=== PATIENT | male | born 1975 | race Caucasian/White ===

== ENCOUNTER 2017-12-21 22:01 | Inpatient (IN) | payer OTHER ==
[2017-12-21 22:01] VITALS: BMI 44.3
--- NOTE | 2017-12-21 23:05 | C.PDOC ---
History Of Present Illness 42 year old with medical history of chronic renal disease, who presents to the emergency department with a complaint of right-sided lower abdominal pain associated with nausea and diarrhea ongoing for 1 day but worsen since 1700- 1800. Patient described pain as sharp and stabbing; 5/10 pain scale. Denied any further medical complaints. PMD: none provided Time Seen by Provider: 12/21/17 23:04 Chief Complaint (Nursing): Abdominal Pain History Per: Patient History/Exam Limitations: no limitations Onset/Duration Of Symptoms: Days (x1) Current Symptoms Are (Timing): Still Present Context: Other Severity: Moderate Pain Scale Rating Of: 5 Location Of Pain/Discomfort: RLQ Radiation Of Pain To:: None Quality Of Discomfort: Sharp Associated Symptoms: denies: Fever, Chills Exacerbating Factors: None Alleviating Factors: None Last Bowel Movement: Yesterday Recent travel outside of the [place]: No Additional History Per: Patient Past Medical History Reviewed: Historical Data, Nursing Documentation, Vital Signs Vital Signs: Last Vital Signs Temp 98.3 F 12/21/17 22:12 Pulse 77 12/22/17 01:53 Resp 20 12/22/17 01:53 BP 114/61 12/22/17 01:53 Pulse Ox 96 12/22/17 01:53 - Medical History PMH: Kidney Stones, Chronic Kidney Disease Denies: No Chronic Diseases Surgical History: Denies: No Surg Hx Other Surgeries: right knee Family History: States: No Known Family Hx - Social History Hx Tobacco Use: No Hx Alcohol Use: Yes Hx Substance Use: No - Immunization History Hx Tetanus Toxoid Vaccination: No Hx Influenza Vaccination: Yes Hx Pneumococcal Vaccination: No Review Of Systems Constitutional: Negative for: Fever, Chills ENT: Negative for: Throat Pain Cardiovascular: Negative for: Chest Pain Respiratory: Negative for: Shortness of Breath Gastrointestinal: Positive for: Nausea, Abdominal Pain (lower right), Diarrhea Genitourinary: Negative for: Dysuria Musculoskeletal: Negative for: Back Pain Skin: Negative for: Rash Neurological: Negative for: Weakness Psych: Negative for: Anxiety Physical Exam - Physical Exam Appears: Non-toxic Skin: Warm, Dry, No Rash Head: Normacephalic Eye(s): bilateral: Normal Inspection Nose: Normal Oral Mucosa: Dry Throat: Normal Neck: Supple Chest: Symmetrical Cardiovascular: Rhythm Regular Respiratory: No Decreased Breath Sounds, No Rales, No Rhonchi, No Wheezing Gastrointestinal/Abdominal: No Normal Exam, Bowel Sounds (tympanitic auscultation), Tenderness (RLQ), No Guarding, No Rebound, Other (morbidly obese) Back: Normal Inspection Extremity: Normal ROM (upper/lower), No Tenderness, No Pedal Edema Extremity: Bilateral: Atraumatic Pulses: Left Dorsalis Pedis: Normal, Right Dorsalis Pedis: Normal Neurological/Psych: Oriented x3, Normal Speech, Normal Cognition Gait: Steady ED Course And Treatment - Laboratory Results Result Diagrams: 12/21/17 23:33 12/21/17 23:33 O2 Sat by Pulse Oximetry: 97 (RA) Pulse Ox Interpretation: Normal Medical Decision Making Medical Decision Making: Initial Impression: RLQ pain Initial Plan: * CT ABD/pelvis with IV contrast * CMP * Lipase * CBC * PTT * PT * Pepcid 20mg IVP * NS 1,000ml IV per 1,000mls/hr * Zofran inj 4mg IVP * UA Scribe Attestation: Documented by Griselda Nice, acting as a scribe for Josse Salguero MD. Provider Scribe Attestation: All medical record entries made by the Scribe were at my direction and personally dictated by me. I have reviewed the chart and agree that the record accurately reflects my personal performance of the history, physical exam, medical decision making, and the department course for this patient. I have also personally directed, reviewed, and agree with the discharge instructions and disposition. Disposition Discussed With : Arpit Verma Comment: accepted the pt on is service and took over the care at 3:27 AM Doctor Will See Patient In The: ED Counseled Patient/Family Regarding: Studies Performed, Diagnosis - Disposition Disposition: HOSPITALIZED Disposition Time: 23:05 Condition: FAIR Forms: [employer] (Lao) - POA Present On Arrival: Poor Glycemic Control - Clinical Impression Clinical Impression: Abdominal pain Decision To Admit - Pt Status Changed To: Hospital Disposition Of: Inpatient - Admit Certification Admit to Inpatient:: After my assessment, the patient will require hospitalization for at least two midnights. This is because of the severity of symptoms shown, intensity of services needed, and/or the medical risk in this patient being treated as an outpatient. - InPatient: Physician Admission Certification:: After my assessment, the patient will require hospitalization for at least two midnights. This is because of the severity of symptoms shown, intensity of services needed, and/or the medical risk in this patient being treated as an outpatient. - . Bed Request Type: Regular Admitting Physician: Arpit Verma Patient Diagnosis: Abdominal pain
[2017-12-21] MEDS ORDERED: Sodium Chloride 0.9% 1,000 ML IV ONE (23:06)
[2017-12-21 23:36] LABS: BASO # 0.1 K/uL (0.0-0.2); BASO % 0.5 % (0.0-2.0); EOS % 0.2 % (0.0-4.0); HEMOGLOBIN 14.3 g/dL (12.0-18.0); LYMPH # 1.3 K/uL (1.0-4.3); LYMPH % 10.3 % (20.0-40.0); MEAN CELL VOLUME 82.5 fL (80.0-94.0); MEAN CORPUSCULAR HEMOGLOBIN 28.8 pg (27.0-31.0); MEAN CORPUSCULAR HGB CONC 34.9 g/dL (33.0-37.0); MEAN PLATELET VOLUME 7.1 fL (7.2-11.7); MONO # 0.8 K/uL (0.0-0.8); MONO % 6.2 % (0.0-10.0); NEUT # 10.7 K/uL (1.8-7.0); NEUT % 82.8 % (50.0-75.0); RBC 4.96 Mil/uL (4.40-5.90); RED CELL DISTRIBUTION WIDTH 13.8 % (11.5-14.5)
[2017-12-21] MEDS ORDERED: Sodium Chloride 0.9% 1,000 ML ONE (23:38)
[2017-12-21 23:43] LABS: INR 1.2; PROTHROMBIN TIME 13.3 SECONDS (9.7-12.2)
[2017-12-21 23:48] LABS: ALB/GLOB RATIO 1.3 (1.0-2.1); ALBUMIN 4.1 g/dL (3.5-5.0); ALT/SGPT 37 U/L (21-72); AST/SGOT 24 U/L (17-59); BLOOD UREA NITROGEN 17 mg/dL (9-20); CALCIUM 8.8 mg/dl (8.6-10.4); GFR AFRICAN-AMERICAN > 60; GFR NON-AFRICAN AMERICAN > 60; LIPASE 37 U/L (23-300)
[2017-12-22] MEDS ORDERED: Iodixanol 320 MG/ML 100 ML BOTTLE IV ONE (00:21)
[2017-12-22 01:06] LABS: URINE BILIRUBIN NEGATIVE (NEGATIVE); URINE BLOOD NEGATIVE (NEGATIVE); URINE CLARITY Clear (Clear); URINE COLOR Yellow (YELLOW); URINE GLUCOSE (UA) NORMAL (Normal); URINE LEUKOCYTE ESTERASE NEG Leu/uL (Negative); URINE NITRATE NEGATIVE (NEGATIVE); URINE PROTEIN NEGATIVE (NEGATIVE); URINE UROBILINOGEN NORMAL mg/dL (0.2-1.0)
--- NOTE | 2017-12-22 02:51 | CT ---
EXAM: CT Abdomen and Pelvis With Intravenous Contrast CLINICAL HISTORY: 42 years old, male; Pain; Abdominal pain; Patient HX: 08-16-16; Additional info: Abd pain rlq TECHNIQUE: Axial computed tomography images of the abdomen and pelvis with intravenous contrast. All CT scans at this facility use one or more dose reduction techniques, viz.: automated exposure control; ma/kV adjustment per patient size (including targeted exams where dose is matched to indication; i.e. head); or iterative reconstruction technique. 812 images are submitted. Coronal and sagittal reformatted images were created and reviewed. CONTRAST: 100 mL of [id number] administered intravenously. COMPARISON: CT - ABD PELVIS W/O PO OR IV CONT 2016-08-16 09:30 FINDINGS: Lower thorax: Small hiatal hernia. ABDOMEN: Liver: Fatty liver. Gallbladder and bile ducts: Unremarkable. No ductal dilation. Pancreas: Unremarkable. No mass. No ductal dilation. Spleen: Unremarkable. No splenomegaly. Adrenals: Unremarkable. No mass. Kidneys and ureters: Unremarkable. No solid mass. No hydronephrosis. Stomach and bowel: Diverticulosis. No obstruction. No mucosal thickening. Appendix: The appendix demonstrates diffuse distention, consistent with acute appendicitis. The appendix measures 1.3 cm with surrounding inflammation an appendicolith. PELVIS: Bladder: Partially distended bladder. Reproductive: Enlarged prostate gland with calcifications. ABDOMEN and PELVIS: Intraperitoneal space: Unremarkable. No free air. No significant fluid collection. Bones/joints: No acute fracture. No dislocation. Soft tissues: Unremarkable. Vasculature: Unremarkable. No abdominal aortic aneurysm. Lymph nodes: Unremarkable. No enlarged lymph nodes. IMPRESSION: The appendix demonstrates diffuse distention, consistent with acute appendicitis. The appendix measures 1.3 cm with surrounding inflammation an appendicolith.
[2017-12-22] MEDS ORDERED: Piperacillin/Tazobact 3.375 gm 100 ML IVPB STA (02:57)
[2017-12-22] MEDS ORDERED: Morphine 4 MG/ML VIAL ONE (03:24)
--- NOTE | 2017-12-22 04:43 | CP.PCM.HP ---
History of Present Illness - History of Present Illness History of Present Illness: General Surgery H&P for Dr. Verma CC: RLQ abdominal pain, fever/chills 42 M with no significant PMH presents to [facility] for complaint of RLQ abdominal pain, fever/chills. Patient states that symptoms began 1 day ago. He suddenly developed the pain while at home. He has never experienced this before in the past. He admits to associated nausea. He was unable to tolerate anything by mouth. He rates pain as severe. He describes as constant, sharp and stabbing located in RLQ without radiation. Patient reports by is exacerbated by most movements while nothing provides full relief but not moving helps. Patients has no other complaints. PMH: denies Meds: denies Allergy: NKDA PSH: R knee arthroscopy FH: CAD, CVA Social: denies tobacco/illicit drug use, admits social EtOH use Present on Admission - Present on Admission Any Indicators Present on Admission: No History of DVT/PE: No History of Uncontrolled Diabetes: No Urinary Catheter: No Decubitus Ulcer Present: No Review of Systems - Review of Systems All systems: reviewed and no additional remarkable complaints except (as per HPI ) Past Patient History - Infectious Disease Hx of Infectious Diseases: None - Past Social History Smoking Status: Never Smoked - CARDIAC Hx Cardiac Disorders: No - PULMONARY Hx Respiratory Disorders: No - NEUROLOGICAL Hx Neurological Disorder: No - HEENT Hx HEENT Problems: No - RENAL Hx Chronic Kidney Disease: Yes Hx Kidney Stones: Yes - ENDOCRINE/METABOLIC Hx Endocrine Disorders: No - HEMATOLOGICAL/ONCOLOGICAL Hx Blood Disorders: No - INTEGUMENTARY Hx Dermatological Problems: No - MUSCULOSKELETAL/RHEUMATOLOGICAL Hx Musculoskeletal Disorders: No - GASTROINTESTINAL Hx Gastrointestinal Disorders: No - GENITOURINARY/GYNECOLOGICAL Hx Genitourinary Disorders: No - PSYCHIATRIC Hx Substance Use: No - SURGICAL HISTORY Hx Surgeries: Yes Hx Orthopedic Surgery: Yes (RIGHT KNEE) - ANESTHESIA Hx Anesthesia: Yes Meds Allergies/Adverse Reactions: Allergies Allergy/AdvReac Type Severity Reaction Status Date / Time No Known Allergies Allergy Verified 12/21/17 22:17 Physical Exam - Constitutional Appears: Toxic, In Acute Distress - Head Exam Head Exam: ATRAUMATIC, NORMOCEPHALIC - Eye Exam Eye Exam: EOMI, Normal appearance Pupil Exam: PERRL - ENT Exam ENT Exam: Mucous Membranes Dry - Respiratory Exam Respiratory Exam: NORMAL BREATHING PATTERN - Cardiovascular Exam Cardiovascular Exam: REGULAR RHYTHM - GI/Abdominal Exam GI & Abdominal Exam: Guarding, Soft, Tenderness (RLQ). absent: Distended, Firm , Rebound, Rigid - Extremities Exam Extremities exam: Positive for: normal capillary refill, pedal pulses present. Negative for: calf tenderness - Back Exam Back exam: absent: CVA tenderness (L), CVA tenderness (R) - Neurological Exam Neurological exam: Alert, CN II-XII Intact, Oriented x3 - Psychiatric Exam Psychiatric exam: Normal Affect, Normal Mood - Skin Skin Exam: Dry, Intact, Normal Color, Warm Results - Vital Signs Recent Vital Signs: Last Vital Signs Temp 99.0 F 12/22/17 03:54 Pulse 79 12/22/17 03:54 Resp 18 12/22/17 03:54 BP 120/73 12/22/17 03:54 Pulse Ox 95 12/22/17 03:54 - Labs Result Diagrams: 12/21/17 23:33 12/21/17 23:33 Labs: Laboratory Results - last 24 hr 12/21/17 12/21/17 12/21/17 01:00 23:33 23:33 WBC 13.0 H RBC 4.96 Hgb 14.3 Hct 40.9 MCV 82.5 MCH 28.8 MCHC 34.9 RDW 13.8 Plt Count 338 MPV 7.1 L Neut % (Auto) 82.8 H Lymph % (Auto) 10.3 L Kimble % (Auto) 6.2 Eos % (Auto) 0.2 Baso % (Auto) 0.5 Neut # 10.7 H Lymph # 1.3 Kimble # 0.8 Eos # 0.0 Baso # 0.1 PT 13.3 H INR 1.2 APTT 35 H Sodium Potassium Chloride Carbon Dioxide Anion Gap BUN Creatinine Est GFR ( Amer) Est GFR (Non-Af Amer) Random Glucose Calcium Total Bilirubin AST ALT Alkaline Phosphatase Total Protein Albumin Globulin Albumin/Globulin Ratio Lipase Urine Color Yellow Urine Clarity Clear Urine pH 6.0 Ur Specific Julian 1.023 Urine Protein Negative Urine Glucose (UA) Normal Urine Ketones Negative Urine Blood Negative Urine Nitrate Negative Urine Bilirubin Negative Urine Urobilinogen Normal Ur Leukocyte Esterase Neg Urine WBC (Auto) < 1 Urine RBC (Auto) 2 12/21/17 23:33 WBC RBC Hgb Hct MCV MCH MCHC RDW Plt Count MPV Neut % (Auto) Lymph % (Auto) Kimble % (Auto) Eos % (Auto) Baso % (Auto) Neut # Lymph # Kimble # Eos # Baso # PT INR APTT Sodium 133 Potassium 4.3 Chloride 95 L Carbon Dioxide 30 Anion Gap 12 BUN 17 Creatinine 0.8 Est GFR ( Amer) > 60 Est GFR (Non-Af Amer) > 60 Random Glucose 138 H Calcium 8.8 Total Bilirubin 0.8 AST 24 ALT 37 Alkaline Phosphatase 95 Total Protein 7.3 Albumin 4.1 Globulin 3.2 Albumin/Globulin Ratio 1.3 Lipase 37 Urine Color Urine Clarity Urine pH Ur Specific Julian Urine Protein Urine Glucose (UA) Urine Ketones Urine Blood Urine Nitrate Urine Bilirubin Urine Urobilinogen Ur Leukocyte Esterase Urine WBC (Auto) Urine RBC (Auto) Assessment & Plan - Assessment and Plan (Free Text) Plan: 42 M with acute appendicitis -NPO -IV fluids -IV antibiotics -Analgesics/Anti-emetics PRN -Antipyretics -OR today for laparoscopic appendectomy -Discussed with Dr. Bayron Royal PGY1
[2017-12-22] MEDS ORDERED: Sodium Chloride 0.9% 1,000 ML IV ONE ×3 (07:57→16:19)
[2017-12-22] MEDS ORDERED: Sodium Chloride 0.9% 1,000 ML IV SCH (08:00)
--- NOTE | 2017-12-22 08:23 | RAD ---
HISTORY: preop COMPARISON: No prior. FINDINGS: LUNGS: No active pulmonary disease. Apical lordotic view noted PLEURA: No significant pleural effusion identified, no pneumothorax apparent. CARDIOVASCULAR: Normal. OSSEOUS STRUCTURES: No significant abnormalities. VISUALIZED UPPER ABDOMEN: Normal. OTHER FINDINGS: None. IMPRESSION: No active disease.
[2017-12-22] MEDS: Piperacill/Tazo 3.375gm in Dex 3.375 GM/50 ML BAG IVPB SCH ×3 (09:14→21:39)
[2017-12-22] MEDS ORDERED: Bupivacaine-Epi 0.5%-1:200,000 PF Inj IJ ONE (10:29)
[2017-12-22] MEDS ORDERED: Midazolam 2 MG/2 ML VIAL ONE (12:01)
[2017-12-22] MEDS ORDERED: Propofol 10 mg/ml Inj (20 ML) ONE ×2 (12:01→13:30)
[2017-12-22] MEDS ORDERED: Neostigmine Methylsulfate 3mg/3ml Syringe IV ONE ×2 (13:10)
--- NOTE | 2017-12-22 13:45 | PCM.SURG1 ---
Surgeon's Initial Post Op Note - Surgeon's Notes Surgeon: Arpit Verma MD Recreation Counselor: Sukumar Schultz PGY-4; Belén Dias PGY-1 Type of Anesthesia: General Endo Pre-Operative Diagnosis: Acute appendicitis Operative Findings: See op report Post-Operative Diagnosis: Acute appendicitis Operation Performed: Laparoscopic converted to open appendectomy Specimen/Specimens Removed: Appendix Estimated Blood Loss: EBL {In ML}: 30 Blood Products Given: N/A Drains Used: No Drains Post-Op Condition: Good Date of Surgery/Procedure: 12/22/17 Time of Surgery/Procedure: 13:45
[2017-12-22] MEDS ORDERED: HYDROmorphone 0.5 mg/0.5 ml ISec IVP PRN (13:46)
[2017-12-22 18:00] VITALS: RESP 20
[2017-12-22] MEDS: Sodium Chloride 0.9% 1,000 ML IV SCH (18:08)
--- NOTE | 2017-12-22 20:54 | CARD ---
APPROVED REPORT EKG Measurement Heart [id number] <Conclusion> Normal sinus rhythm Normal ECG
--- NOTE | 2017-12-23 00:25 | OP ---
PROCEDURE DATE: 12/22/2017 PREOPERATIVE DIAGNOSIS: Acute appendicitis. POSTOPERATIVE DIAGNOSIS: Acute gangrenous appendicitis. PROCEDURE PERFORMED: Attempted laparoscopic appendectomy, laparotomy and appendectomy. SURGEON: Arpit Verma MD DEBURRING AND TOOLING MACHINE OPERATOR: . FINDINGS: At first, there was a tremendous amount of intestinal distention, preventing adequate visualization of the abdominal cavity in spite of the very high pressure that was already inserted into the patient. The appendix was markedly swollen. It was gangrenous, but there was no gross perforation noted. DESCRIPTION OF PROCEDURE: Under general anesthesia, the patient was prepared and draped in the usual sterile fashion. At first, CO2 was insufflated through a Veress needle inserted into the umbilical area. A 12-mm trocar was attempted to be inserted, but it was not long enough to penetrate the peritoneal cavity. Therefore, the trocar was changed into the longest trocar that we have. When this was finally inserted and the camera was inserted, it was impossible to visualize even the parietal peritoneal wall to be able to put down or put in the other trocars. Attempt at visualizing the appendix and the area surrounding it was impossible because of the tremendous amount of abdominal and intestinal distention. Therefore, at this point, it was decided that we ought to do a laparotomy to be able to do the appendectomy adequately. A right paramedian incision was made going down into the adipose tissue. Fascia was then divided and the muscle along the course of its fibers. all the bleeders still were encountered. The peritoneal cavity was entered and examination demonstrated that the appendix was adherent to the posterior wall, and it was then decided to do the blunt dissection to mobilize the cecum slightly. When the appendix was then visualized, it was grasped with two [place] forceps. Gentle traction was applied. The base of the appendix was then transected between 2 large Mago forceps and the base was ligated with 0 Vicryl tie. The mesoappendix was treated in a similar fashion and also was suture ligated because of some oozing in the mesentery. When this was accomplished, the cecum was at the base of the appendix, in normal position. The abdomen was then closed utilizing a continuous suture of #1 Vicryl to the peritoneum and interrupted #1 Vicryl suture to the fascia. The skin was closed with multiple skin julianne. The other umbilical incisions were closed with suture of 0 Vicryl, the skin with subcuticular suture of 4-0 Monocryl. The estimated blood loss for the procedure was approximately about 30-50 mL. The patient tolerated the procedure quite well and left the operating room in good condition. At the end of the procedure, the area of the operation was then inspected and there was no bleeding noted. Therefore, the abdomen was closed as described previously. Arpit Verma MD
[2017-12-23] MEDS: Sodium Chloride 0.9% 1,000 ML IV SCH ×4 (02:21→21:50)
[2017-12-23] MEDS: Piperacill/Tazo 3.375gm in Dex 3.375 GM/50 ML BAG IVPB SCH ×4 (02:21→21:47)
[2017-12-23] MEDS: Oxycodone/Acetaminophen 5/325 mg Tab PO PRN ×2 (08:14→21:48)
--- NOTE | 2017-12-23 09:30 | CP.PCM.PN ---
Subjective - Date & Time of Evaluation Date of Evaluation: 12/23/17 Time of Evaluation: 09:27 - Subjective Subjective: General Surgery progress Note for Dr. Verma Patient was seen and examined this AM at bedside no acute events overnight. Dressing with sanguinous strike through. Pt denies fevers chills nausea vomiting diarrhea, denies flatus or BM, reports voiding. Objective - Vital Signs/Intake and Output Vital Signs (last 24 hours): Temp Pulse Resp BP Pulse Ox 98.3 F 85 20 145/73 94 L 12/23/17 08:15 12/23/17 08:15 12/23/17 08:15 12/23/17 08:15 12/23/17 08:15 Intake and Output: 12/23/17 12/23/17 06:59 18:59 Intake Total 1440 Output Total 550 Balance 890 - Medications Medications: Current Medications Hydromorphone HCl (Dilaudid) 1 mg IVP Q3H PRN PRN Reason: Pain, severe (8-10) Last Admin: 12/23/17 02:20 Dose: 1 mg Piperacillin Sod/Tazobactam Sod (Zosyn 3.375 Gm Iv Premix) 3.375 gm in 50 mls @ 100 mls/hr IVPB Q6H [facility] Last Admin: 12/23/17 08:15 Dose: 100 mls/hr Sodium Chloride (Sodium Chloride 0.9%) 1,000 mls @ 100 mls/hr IV .Q10H [facility] Last Admin: 12/23/17 02:21 Dose: 100 mls/hr Ondansetron HCl (Zofran Inj) 4 mg IVP Q4H PRN PRN Reason: Nausea/Vomiting Oxycodone/Acetaminophen (Percocet 5/325 Mg Tab) 1 tab PO Q4H PRN PRN Reason: Pain, moderate (4-7) Stop: 12/25/17 13:47 Last Admin: 12/23/17 08:14 Dose: 1 tab Pantoprazole Sodium (Protonix Inj) 40 mg IVP DAILY [facility] Last Admin: 12/22/17 09:16 Dose: 40 mg - Labs Labs: 12/21/17 23:33 12/21/17 23:33 PT 13.3 SECONDS (9.7-12.2) H 12/21/17 23:33 INR 1.2 12/21/17 23:33 APTT 35 SECONDS (21-34) H 12/21/17 23:33 - Constitutional Appears: Non-toxic, No Acute Distress - Head Exam Head Exam: ATRAUMATIC, NORMOCEPHALIC - Eye Exam Eye Exam: EOMI, Normal appearance - ENT Exam ENT Exam: Mucous Membranes Moist - Respiratory Exam Respiratory Exam: NORMAL BREATHING PATTERN - Cardiovascular Exam Cardiovascular Exam: +S1, +S2 - GI/Abdominal Exam GI & Abdominal Exam: Soft. absent: Firm, Guarding, Rigid, Tenderness Additional comments: Dressing with sanguinous strike through - Neurological Exam Neurological Exam: Alert, Awake - Psychiatric Exam Psychiatric exam: Normal Affect, Normal Mood - Skin Skin Exam: Dry, Intact Assessment and Plan - Assessment and Plan (Free Text) Assessment: 42M POD#1 s/p open appy. Monitor bowel function Advance to fulls Continue ABX D/W Dr. Verma [phone]
[2017-12-24] MEDS: Sodium Chloride 0.9% 1,000 ML IV SCH ×3 (02:53→20:00)
[2017-12-24] MEDS: Piperacill/Tazo 3.375gm in Dex 3.375 GM/50 ML BAG IVPB SCH ×4 (02:53→21:21)
--- NOTE | 2017-12-24 19:49 | CP.PCM.PN ---
Subjective - Date & Time of Evaluation Date of Evaluation: 12/24/17 Time of Evaluation: 08:00 - Subjective Subjective: General Surgery progress Note for Dr. Verma This Pt was seen and examined this AM at bedisde no acute events, pt not ambulating, tolerating clears no passing flatus or BM. Objective - Vital Signs/Intake and Output Vital Signs (last 24 hours): Temp Pulse Resp BP Pulse Ox 97.8 F 72 20 154/77 H 96 12/24/17 15:15 12/24/17 15:15 12/24/17 15:15 12/24/17 15:15 12/24/17 15:15 Intake and Output: 12/24/17 12/25/17 18:59 06:59 Intake Total 950 Output Total 900 Balance 50 - Medications Medications: Current Medications Hydromorphone HCl (Dilaudid) 1 mg IVP Q3H PRN PRN Reason: Pain, severe (8-10) Last Admin: 12/23/17 02:20 Dose: 1 mg Piperacillin Sod/Tazobactam Sod (Zosyn 3.375 Gm Iv Premix) 3.375 gm in 50 mls @ 100 mls/hr IVPB Q6H [facility] Last Admin: 12/24/17 14:21 Dose: 100 mls/hr Sodium Chloride (Sodium Chloride 0.9%) 1,000 mls @ 100 mls/hr IV .Q10H [facility] Last Admin: 12/24/17 16:00 Dose: Not Given Ondansetron HCl (Zofran Inj) 4 mg IVP Q4H PRN PRN Reason: Nausea/Vomiting Last Admin: 12/24/17 08:32 Dose: 4 mg Oxycodone/Acetaminophen (Percocet 5/325 Mg Tab) 1 tab PO Q4H PRN PRN Reason: Pain, moderate (4-7) Stop: 12/25/17 13:47 Last Admin: 12/23/17 21:48 Dose: 1 tab Pantoprazole Sodium (Protonix Inj) 40 mg IVP DAILY [facility] Last Admin: 12/24/17 09:56 Dose: 40 mg - Labs Labs: 12/21/17 23:33 12/21/17 23:33 PT 13.3 SECONDS (9.7-12.2) H 12/21/17 23:33 INR 1.2 12/21/17 23:33 APTT 35 SECONDS (21-34) H 12/21/17 23:33 - Constitutional Appears: Non-toxic, No Acute Distress - Head Exam Head Exam: ATRAUMATIC, NORMOCEPHALIC - Eye Exam Eye Exam: EOMI, Normal appearance - ENT Exam ENT Exam: Mucous Membranes Moist, Normal Exam - Respiratory Exam Respiratory Exam: NORMAL BREATHING PATTERN - Cardiovascular Exam Cardiovascular Exam: +S1, +S2 - GI/Abdominal Exam GI & Abdominal Exam: Soft. absent: Firm, Guarding, Rigid, Tenderness - Neurological Exam Neurological Exam: Alert, Awake - Psychiatric Exam Psychiatric exam: Normal Affect, Normal Mood - Skin Skin Exam: Dry Assessment and Plan - Assessment and Plan (Free Text) Assessment: 42M POD#2 s/p open appy. Monitor bowel function full liquids Continue ABX D/W Dr. Verma [phone]
[2017-12-25] MEDS: Piperacill/Tazo 3.375gm in Dex 3.375 GM/50 ML BAG IVPB SCH ×2 (03:10→08:58)
[2017-12-25] MEDS: Sodium Chloride 0.9% 1,000 ML IV SCH ×2 (08:58→11:47)
--- NOTE | 2017-12-25 10:51 | CP.PCM.DIS ---
Provider - Provider Date of Admission: 12/22/17 03:27 Attending physician: Arpit Verma MD Primary care physician: Dr. Verma Consults: none Time Spent in preparation of Discharge (in minutes): 35 Diagnosis - Discharge Diagnosis (1) Acute appendicitis Status: Acute (2) S/P appendectomy Status: Acute Hospital Course - Lab Results Lab Results: Most Recent Lab Values WBC 13.0 K/uL (4.8-10.8) H 12/21/17 23:33 RBC 4.96 Mil/uL (4.40-5.90) 12/21/17 23:33 Hgb 14.3 g/dL (12.0-18.0) 12/21/17 23:33 Hct 40.9 % (35.0-51.0) 12/21/17 23:33 MCV 82.5 fL (80.0-94.0) 12/21/17 23:33 MCH 28.8 pg (27.0-31.0) 12/21/17 23:33 MCHC 34.9 g/dL (33.0-37.0) 12/21/17 23:33 RDW 13.8 % (11.5-14.5) 12/21/17 23:33 Plt Count 338 K/uL (130-400) 12/21/17 23:33 MPV 7.1 fL (7.2-11.7) L 12/21/17 23:33 Neut % (Auto) 82.8 % (50.0-75.0) H 12/21/17 23:33 Lymph % (Auto) 10.3 % (20.0-40.0) L 12/21/17 23:33 [place] % (Auto) 6.2 % (0.0-10.0) 12/21/17 23:33 Eos % (Auto) 0.2 % (0.0-4.0) 12/21/17 23:33 Baso % (Auto) 0.5 % (0.0-2.0) 12/21/17 23:33 Neut # 10.7 K/uL (1.8-7.0) H 12/21/17 23:33 Lymph # 1.3 K/uL (1.0-4.3) 12/21/17 23:33 [place] # 0.8 K/uL (0.0-0.8) 12/21/17 23:33 Eos # 0.0 K/uL (0.0-0.7) 12/21/17 23:33 Baso # 0.1 K/uL (0.0-0.2) 12/21/17 23:33 PT 13.3 SECONDS (9.7-12.2) H 12/21/17 23:33 INR 1.2 12/21/17 23:33 APTT 35 SECONDS (21-34) H 12/21/17 23:33 Sodium 133 mmol/L (132-148) 12/21/17 23:33 Potassium 4.3 mmol/L (3.6-5.2) 12/21/17 23:33 Chloride 95 mmol/L (98-107) L 12/21/17 23:33 Carbon Dioxide 30 mmol/L (22-30) 12/21/17 23:33 Anion Gap 12 (10-20) 12/21/17 23:33 BUN 17 mg/dL (9-20) 12/21/17 23:33 Creatinine 0.8 mg/dL (0.8-1.5) 12/21/17 23:33 Est GFR ( Amer) > 60 12/21/17 23:33 Est GFR (Non-Af Amer) > 60 12/21/17 23:33 Random Glucose 138 mg/dL (75-110) H 12/21/17 23:33 Calcium 8.8 mg/dl (8.6-10.4) 12/21/17 23:33 Total Bilirubin 0.8 mg/dL (0.2-1.3) 12/21/17 23:33 AST 24 U/L (17-59) 12/21/17 23:33 ALT 37 U/L (21-72) 12/21/17 23:33 Alkaline Phosphatase 95 U/L (38-126) 12/21/17 23:33 Total Protein 7.3 g/dL (6.3-8.3) 12/21/17 23:33 Albumin 4.1 g/dL (3.5-5.0) 12/21/17 23:33 Globulin 3.2 gm/dL (2.2-3.9) 12/21/17 23:33 Albumin/Globulin Ratio 1.3 (1.0-2.1) 12/21/17 23:33 Lipase 37 U/L (23-300) 12/21/17 23:33 Urine Color Yellow (YELLOW) 12/21/17 01:00 Urine Clarity Clear (Clear) 12/21/17 01:00 Urine pH 6.0 (5.0-8.0) 12/21/17 01:00 Ur Specific [place] 1.023 (1.003-1.030) 12/21/17 01:00 Urine Protein Negative mg/dL (NEGATIVE) 12/21/17 01:00 Urine Glucose (UA) Normal mg/dL (Normal) 12/21/17 01:00 Urine Ketones Negative mg/dL (NEGATIVE) 12/21/17 01:00 Urine Blood Negative (NEGATIVE) 12/21/17 01:00 Urine Nitrate Negative (NEGATIVE) 12/21/17 01:00 Urine Bilirubin Negative (NEGATIVE) 12/21/17 01:00 Urine Urobilinogen Normal mg/dL (0.2-1.0) 12/21/17 01:00 Ur Leukocyte Esterase Neg [place]/uL (Negative) 12/21/17 01:00 Urine WBC (Auto) < 1 /hpf (0-5) 12/21/17 01:00 Urine RBC (Auto) 2 /hpf (0-3) 12/21/17 01:00 Blood Type O POSITIVE 12/22/17 06:55 Antibody Screen Negative 12/22/17 06:55 - Hospital Course Hospital Course: 42M w/no sig PMH admitted for acute appendicitis. Pt taken to OR for laparaoscopic converted to open appendectomy on hospital day 1. Pt tolerated procedure well. Diet was advanced slowly, pt had slow return of bowel function. Pt stabilized, urinating freely, having flatus, tolerating diet and ambulating on POD#2. Pt stable and ready for discharge home on antibiotics and probiotics. Work excuse in chart. Pt to follow up with Dr. Verma in 1 week. Diagnoses: Acute appendicitis s/p open appendectomy morbid obesity - Date & Time of H&P Date of H&P: 12/22/17 Time of H&P: 04:43 Discharge Exam - Head Exam Head Exam: ATRAUMATIC, NORMAL INSPECTION, NORMOCEPHALIC - Eye Exam Eye Exam: EOMI, Normal appearance - ENT Exam ENT Exam: Mucous Membranes Moist, Normal Exam - Neck Exam Neck exam: Full Rom, Normal Inspection - Respiratory Exam Respiratory Exam: NORMAL BREATHING PATTERN, UNREMARKABLE - Cardiovascular Exam Cardiovascular Exam: REGULAR RHYTHM, +S1, +S2 - GI/Abdominal Exam GI & Abdominal Exam: Soft. absent: Distended, Firm, Guarding, Rebound, Tenderness Additional comments: abdominal incision with julianne in place, slight erythema, no drainage noted. Umbilical incision site with scant serous drainage, no purulent drainage, no erythema - Extremities Exam Extremities exam: normal inspection - Neurological Exam Neurological exam: Alert, CN II-XII Intact, Oriented x3 - Psychiatric Exam Psychiatric exam: Normal Affect, Normal Mood - Skin Skin Exam: Dry, Normal Color, Warm Discharge Plan - Discharge Medications Prescriptions: Ciprofloxacin HCl [Cipro] 500 mg PO BID #14 tablet Ondansetron ODT [Zofran ODT] 4 mg PO TID PRN #12 odt PRN Reason: Nausea/Vomiting Saccharomyces Boulardii [Florastor] 250 mg PO BID #14 capsule - Follow Up Plan Condition: GOOD Disposition: HOME/ ROUTINE Instructions: Appendicitis (DC), Open Appendectomy (DC) Additional Instructions: Please follow up with Dr. Verma in 1-2 weeks after discharge. No heavy lifting until cleared by surgeon. You are being discharged on antibiotics- please take the full course as prescribed. Please make sure to either eat yogurt or take a probiotic while on antibiotics to prevent diarrhea. You may resume a normal diet. Ok to shower, gently washing the surgical sites with soap and water. Do not sit in a hot tub or take a bath. No heavy lifting for 4-6 weeks or until cleared by Dr. Verma. Please return to hospital if you have fevers or chills. If you have any other concerns, please call Dr. Verma. Referrals: Arpit Verma MD [Staff Provider] -
[2017-12-25 12:58] VITALS: BP 128/76; PULSE 68; TEMP 98.2; O2SAT 96
[2017-12-25] MEDS ORDERED: Piperacillin/Tazobact 3.375 GM in Sodium Chloride 0.9% 100 ML IVPB SCH (15:00)
== END 2017-12-25 14:10 | disposition home or self-care (01) | DRG 342 ==
LOC: C.ER 22:01 → C.9E 12-22 03:27 → C.6T 12-22 17:31
PROVIDERS: ADMIT Surgery; ATTEND Surgery
PROC: 0DTJ0ZZ Resection of Appendix, Open Approach (ICD-10-PCS; principal; 2017-12-22 17:00)
PROC: 0DJD4ZZ Inspection of Lower Intestinal Tract, Percutaneous Endoscopic Approach (ICD-10-PCS; 2017-12-22 17:00)
DX: K35.80 Unspecified acute appendicitis (principal); Z68.41 Body mass index [BMI] 40.0-44.9, adult; E66.01 Morbid (severe) obesity due to excess calories; N18.9 Chronic kidney disease, unspecified; Z87.442 Personal history of urinary calculi